=== PATIENT | female | born 1960 | race Two or more races ===

== ENCOUNTER 2021-10-26 01:20 | Emergency (ER) | payer BC, OTHER ==
[~2021-10-26] VITALS: Ht 165.1 cm; Wt 72.6 kg
[2021-10-26] MEDS ORDERED: MECLIZINE HCL 25 MG TAB PO ONE (01:30)
[2021-10-26] MEDS ORDERED: SODIUM CHLORIDE 0.9% 1,000 ML IV ONE (01:30)
[2021-10-26] MEDS ORDERED: METOCLOPRAMIDE HCL 5MG/ml INJ 2ml VIAL IV ONE (01:30)
[2021-10-26] MEDS ORDERED: LABETALOL HCL 5 MG/ML 4ML SYRINGE IV ONE (01:45)
[2021-10-26] MEDS ORDERED: LORazepam 2MG/ML-1ML VIAL ONE (02:08)
[2021-10-26] MEDS ORDERED: LORazepam 2MG/ML-1ML VIAL IV ONE (02:15)
[2021-10-26 02:42] LABS: Basophils # (auto) 0 10 ^3/uL (0-0.2); Basophils % (auto) 0.2 % (0.0-2.0); Eosinophils # (auto) 0 10 ^3/uL (0-0.8); Hematocrit 49.2 % (36.0-46.0); Hemoglobin 16.7 g/dL (12.2-16.2); Lymphocytes # (auto) 0.9 10 ^3/uL (0.4-5.4); Lymphocytes % (auto) 9.2 % (10.0-50.0); Mean Corpuscular Hemoglobin 30.2 pg (28.0-32.0); Mean Corpuscular Volume 88.7 fL (80.0-100.0); Monocytes # (auto) 0.4 10 ^3/uL (0-1.3); Monocytes % (auto) 3.9 % (0.0-12.0); Neutrophils # (auto) 8.4 10 ^3/uL (1.6-8.6); Neutrophils % (auto) 86.7 % (37.0-80.0); Nucleated Red Blood Cells % 0.2 %; Red Blood Cells 5.55 10^6/uL (4.0-5.20); Red Cell Distribution Width 13.9 % (11.8-14.3); White Blood Cell 9.7 10^3/uL (4.4-10.8)
[2021-10-26 02:57] LABS: Albumin 3.8 g/dL (3.4-5.0); Calcium 8.7 mg/dL (8.5-10.1); Potassium 3.9 mmol/L (3.5-5.1)
[2021-10-26 03:00] LABS: Bilirubin, Total 0.5 mg/dL (0.2-1.0); Total Protein 6.8 g/dL (6.4-8.2)
[2021-10-26 04:27] VITALS: BP 154/96
== END 2021-10-26 06:37 | disposition home or self-care (01) ==
LOC: EDBD 01:20 → ER 01:24
DX: E86.0 Dehydration (principal); R42 Dizziness and giddiness; I10 Essential (primary) hypertension; E11.9 Type 2 diabetes mellitus without complications
CPT/HCPCS: 36415; 70450; 80053; 85025; 96361; 96374; 96375; 99284; J2060; J2765; J3490; J7030; J8597